=== PATIENT | male | born 1955 | race Caucasian/White ===

== ENCOUNTER 2017-06-25 10:21 | Day surgery (SDC) | payer OTHER ==
[~2017-06-25] VITALS: Ht 170.2 cm; Wt 99.3 kg
[~2017-06-25 10:21] MED LIST: FLOMAX0.4 MG PO; TRANSDERM-SCOP1 EACH TD; XANAX0.25 MG PO; ZESTRIL5 MG PO; ZOCOR40 MG PO
[2017-06-25 11:02] VITALS: BP 141/90
[2017-06-25 14:56] VITALS: BP 134/77
[2017-06-25 15:55] VITALS: BP 123/85
== END 2017-06-25 15:55 | disposition home or self-care (01) ==
LOC: SDC 10:21
DX: D17.0 Benign lipomatous neoplasm of skin and subcutaneous tissue of head, face and neck (principal); K21.9 Gastro-esophageal reflux disease without esophagitis; I10 Essential (primary) hypertension; E78.5 Hyperlipidemia, unspecified; Z85.828 Personal history of other malignant neoplasm of skin; Z87.891 Personal history of nicotine dependence
CPT/HCPCS: 88304; 93005; J0690; J1100; J2250; J2405; J3010; S0020